=== PATIENT | female | born 1950 | race Caucasian/White ===

== ENCOUNTER 2021-08-08 12:06 | Outpatient (REF) | payer MEDICARE, SELFPAY ==
[2021-08-08 13:44] LABS: ALT 22 U/L (14-59); AST 15 U/L (15-37); Calculated LDL 204 mg/dL (<100); Cholesterol 287 mg/dL (<200); HDL Cholesterol 57 mg/dL (40-60); Triglyceride 134 mg/dL (<150)
== END 2021-08-08 12:07 | disposition home or self-care (01) ==
LOC: NCHCN 12:06
PROVIDERS: PCP Neuromusculoskeletal Medicine & OMM; Visit Provider Nurse Practitioner Family
DX: E11.9 Type 2 diabetes mellitus without complications (principal); E78.70 Disorder of bile acid and cholesterol metabolism, unspecified
CPT/HCPCS: 80061; 84450; 84460

== ENCOUNTER → 2021-09-02 01:13 | Outpatient (CLI) | payer MEDICARE, SELFPAY ==
--- NOTE | 2021-09-02 12:07 | DI.MAMMO_ITS ---
Exam(s) MAMMO SCREENING EXAM: MAMMO SCREENING CLINICAL HISTORY: SCREENING, Z12.39 TECHNIQUE: Bilateral full field digital CC and MLO mammographic images were obtained with 3D tomosyn thesis and utilizing computer aided detection (CAD). COMPARISON: Available for comparison. FINDINGS: Masses/Architectural Distortion: There is a new ovoid density in the upper-outer quadrant of the righ t breast 4-5 cm from the nipple. Microcalcifications: No suspicious pleomorphic-type are seen. Skin Thickening/Nipple Retraction: None. IMPRESSION: 1. New ovoid density in the upper-outer quadrant of the right breast. 2. Further evaluation with spot compression views and a right breast ultrasound are requested. BI-RADS Category 0 - Assessment Incomplete: Need additional imaging evaluation Breast Density - Category B - Scattered areas of fibroglandular density Breast density category C or D implies that the patient has dense breast tissue. Dense breast tissue is very common and is not abnormal but dense breast tissue can make it harder to find cancer on a ma mmogram. Also, dense breast tissue may increase their breast cancer risk. This information about the result of the mammogram report was provided to the patient to raise their awareness. Use this report when you speak with the patient about their risks for breast cancer, which includes their family hist ory. At that time, you may recommend for more screening tests (Ultrasound or MRI) as they might be us eful based on their risk. A negative radiographic report should not delay biopsy if a dominant or clinically suspicious mass is present. Up to ten percent of cancers are not identified on mammography. A negative report may reinforce clinical impression. Adenosis and dense breasts may obscure an underlying neoplasm. False positive reports average 6 to 10%. Patient will receive a letter notifying them of these results.
== END ==
PROVIDERS: PCP Nurse Practitioner Family; Visit Provider Nurse Practitioner Family
DX: Z12.31 Encounter for screening mammogram for malignant neoplasm of breast (principal); R92.8 Other abnormal and inconclusive findings on diagnostic imaging of breast; N63.11 Unspecified lump in the right breast, upper outer quadrant
CPT/HCPCS: 77063; 77067

== ENCOUNTER 2021-09-12 00:46 | Outpatient (CLI) | payer MEDICARE, SELFPAY ==
--- NOTE | 2021-09-12 | DI.US_ITS ---
Exam(s) MG MAMMO SCREEN CALL BACK UNI US BREAST RT LIMITED EXAM: US BREAST RT LIMITED CLINICAL HISTORY: F/U MAMMO, NEW OVOID DENSITY RUOQ TECHNIQUE: Ultrasound performed using standard protocol. COMPARISON: US US BREAST RT LIMITED from 06/06/2014 MG MG MAMMO SCREEN CALL BACK UNI from 09/12/2021 FINDINGS: Additional mammographic views of the right breast and right breast ultrasound are interpreted in conj unction. These examinations were obtained to evaluate a new area of nodularity in the upper outer qu adrant of the right breast about 4-5 cm from the nipple seen on recent mammogram. Spot compression v iews again show a well-circumscribed elongated ovoid nodule. Breast ultrasound shows a predominantly echogenic 6 x 4 millimeter in diameter well-circumscribed nodule with an echo [facility]. The dee mcgraw reports that she had prior trauma to this portion of the breast, the mammographic findings woul d be consistent with a small hematoma. Other etiologies including neoplastic disease are not exclude d on the basis of this examination. I would suggest that a follow-up right breast mammogram and righ t breast ultrasound be obtained in 6 months to confirm the cysts stability of this small mass. IMPRESSION: BI-RADS Cat 3 - 6 month - Probably Benign Finding: Recommend follow-up imaging in 6 months Breast Density - Category B - Scattered areas of fibroglandular density DATA REPOSITORY:
== END 2021-09-12 01:06 ==
PROVIDERS: PCP Nurse Practitioner Family; Visit Provider Nurse Practitioner Family
DX: R92.8 Other abnormal and inconclusive findings on diagnostic imaging of breast (principal); N63.11 Unspecified lump in the right breast, upper outer quadrant
CPT/HCPCS: 76642; 77063; 77067

== ENCOUNTER → 2021-09-17 01:08 | Outpatient (CLI) | payer MEDICARE, SELFPAY ==
--- NOTE | 2021-09-17 07:31 | DI.US_ITS ---
APPROVED REPORT EXAM: Comprehensive 2D, Doppler, and color-flow Echocardiogram Patient Location: Out-Patient Rocket Scientist: Nelly Linares RDCS (AE) Indications: Murmur Other Information Study Quality: Good Conclusion Normal left ventricular wall thickness and chamber size. Estimated ejection fraction is 60 to 65%. Wall motion is normal Normal right ventricular size and systolic function Both atria are normal in size Aortic valve is trileaflet and sclerotic. There is no aortic stenosis or regurgitation Mild mitral annular calcification. Trace mitral regurgitation Normal tricuspid valve with trace regurgitation. Normal estimated right ventricular systolic pressur e 23 mmHg Borderline dilated ascending aorta measuring 3.42 cm Wall motion Left Ventricle The left ventricle is normal size. The left ventricular systolic function is normal. The left ventric ular ejection fraction is within the normal range. There is normal left ventricular wall thickness. T here is normal LV segmental wall motion. There is no ventricular septal defect visualized. LVEF is 60 -65%. Right Ventricle The right ventricle is normal size. The right ventricular systolic function is normal. The RVSP is 23 .1mmHg. Atria The left atrium size is normal. The right atrium size is normal. The interatrial septum is intact wit h no evidence for an atrial septal defect. Aortic Valve Aortic valve is calcified. No hemodynamically significant valvular aortic stenosis. No aortic regurgi tation is present. Mitral Valve Mild mitral annular calcification. No evidence of mitral valve stenosis. Trace mitral regurgitation. Tricuspid Valve The tricuspid valve is normal in structure. There is no tricuspid valve stenosis. Trace tricuspid reg urgitation. Pulmonic Valve The pulmonary valve is normal in structure. There is no pulmonic valvular stenosis. There is no pulmo darrel valvular regurgitation. Great Vessels The aortic root is normal in size. The ascending aorta is mildly dilated. Aortic arch is normal in ca liber. IVC is normal in size and collapses >50% with inspiration. Pericardium There is no pericardial effusion. 2D Dimensions IVSD d PLAX 1.02 cm F: 0.6-1.0 LV Vol A2C d MOD 89.7 mL LVPW d PLAX 1.04 cm F: 0.6 - 1.0 LV Vol A4C d MOD 91.0 mL LVID d PLAX 4.54 cm F: 3.8 - 5.2 LA vol/ BSA A2C s A-L 23.2 mL/m2 LVDs 3.00 cm F: 2.2 - 3.5 LA vol/ BSA A4C s A-L 25.9 mL/m2 Ao Root d 3.26 cm F: 2.7 - 3.3 LA Vol/ BSA Biplane s A-L 26.3 mL/m2 RA Area A4C 13.03 cm2 LA Area A4C s MOD 16.71 cm2 RA Vol/ BSA A4C s A-L 18.5 mL/m2 LA Area A2C s MOD 14.70 cm2 Ao Asc Diam d 3.42 cm F: 2.3 - 3.1 LV EF A4C MOD 64.5 % LV EF Teichholz 62.8 % LV EF A2C MOD 61.0 % LVEF (Correa's) 62.65 % F: 54 - 74 LV EF Biplane MOD 62.6 % LV Volume 73.64 mL F: 46 - 106 SV 57.16 mL LV Volume Index 45.45 mL/m2 F: 29 - 61 SV Index 35.11 mL/m2 LV Vol Biplane MOD 91.2 mL FS 33.85 % M-Mode TAPSE 1.96 cm (M/F) >1.7 LV Diastology MV E' medial 0.067 (>0.07 m/s) E/A Ratio 0.9 LV E/e MED 12.90 (<14) MV E Vmax 0.87 (0.4-1.3 m/s) MV E' lateral 0.087 (>0.1 m/s) MV A Vmax 1.00 (0.4-1.3 m/s) LV E/e LAT 10.00 (<14) MV E/A Ratio 0.85 MV E/E' medial 12.91 MV E/E' lateral 10.01 Aortic Valve LVOT Area 3.16 cm2 AoV Area Vmax 1.56 cm2 LVOT Vmax 0.99 m/s AoV Area/ BSA (Vmax) 0.96 cm2/m2 LVOT Mean Bronson. 0.58 m/s LIANET Mean Bronson. 1.38 cm2 LVOT Peak Grad 3.9 mmHg LIANET Mean Bronson. Index 0.85 cm2/m2 LVOT Mean Grad 1.7 mmHg LVOT VTI 0.242 m LVOT Diam s 2.00 cm AoV Vmax 2.00 m/s Velocity Ratio 0.49 AoV Mean Bronson. 1.32 m/s AoV Peak Grad 16.0 mmHg LVOT SV 76.52 mL AoV Mean Grad 8.1 mmHg AoV VTI 0.419 m AoV Area VTI 1.83 cm2 AoV Area/ BSA (VTI) 1.12 cm/m2 Mitral Valve MV DT 258 (160-240 msec) MV PHT 75 msec MV Area PHT 2.94 cm2 MV VTI 0.397 m MV Area VTI 1.93 (4.0-6.0 cm2) Pulmonary Valve PV Vmax 1.11 (0.5-1.5 m/s) RVOT Peak Gr. 3.61 mmHg PV Peak Grad 4.9 mmHg RVOT Mean Gr. 1.90 mmHg PV Mean Grad 2.9 mmHg RVOT VTI 0.218 m PV VTI 0.246 m RVOT Vmax 0.95 m/s Tricuspid Valve TR Peak Grad 20.0 mmHg TR Vmax 2.24 m/s RA Pressure 3.00 mmHg RVSP (TR) 23.1 mmHg
== END ==
PROVIDERS: PCP Nurse Practitioner Family; Visit Provider Nurse Practitioner Family
DX: R01.1 Cardiac murmur, unspecified (principal); I35.8 Other nonrheumatic aortic valve disorders; I77.810 Thoracic aortic ectasia
CPT/HCPCS: 93306

== ENCOUNTER 2022-07-08 17:21 | Outpatient (REF) | payer MEDICARE, SELFPAY ==
[2022-07-08 16:10] LABS: HCT 38.2 % (36.0-46.0); HGB 12.7 g/dL (11.2-15.7); MCH 29.7 pg (27.0-33.0); MCHC 33.2 % (32.0-36.0); MCV 90 fL (80-95); MPV 11.2 fL (8.0-11.0); Platelet Count 246 10^3/uL (130-400); RBC 4.27 10^6/uL (3.93-5.22); RDW 12.5 % (11.7-14.6); RDW-SD 40.9 fL; WBC 6.04 10^3/uL (4.4-10.8)
[2022-07-08 17:02] LABS: ALT 22 U/L (14-59); AST 15 U/L (15-37); Albumin 3.8 g/dL (3.4-5.0); Alkaline Phosphatase 82 U/L (46-116); Anion Gap 9.7 mmol/L (3-11); BUN 21 mg/dL (7-18); Bilirubin, Total 0.3 mg/dL (0.2-1.0); CO2 27.3 mmol/L (21.0-32.0); CREATININE 0.8 mg/dL (0.55-1.02); Calcium 9.7 mg/dL (8.5-10.1); Calculated LDL 176 mg/dL (<100); Chloride 103 mmol/L (98-107); Cholesterol 260 mg/dL (<200); Glucose 132 mg/dL (74-106); HDL Cholesterol 64 mg/dL (40-60); Potassium 4.7 mmol/L (3.5-5.1); Sodium 140 mmol/L (136-145); Total Protein 8.1 g/dL (6.4-8.2); Triglyceride 102 mg/dL (<150)
== END 2022-07-08 17:22 | disposition home or self-care (01) ==
LOC: NCHCN 17:21
PROVIDERS: PCP Nurse Practitioner Family; Visit Provider Nurse Practitioner Family
DX: I10 Essential (primary) hypertension (principal)
CPT/HCPCS: 80053; 80061; 85027

== ENCOUNTER 2022-10-06 16:29 | Emergency (ER) | payer MEDICARE, SELFPAY ==
[2022-10-06] VITALS (15 sets, daily range): BP systolic 103–127; BP diastolic 39–56; PULSE 89–116; RESP 13–27; TEMP 37.7; O2SAT 90–95
--- NOTE | 2022-10-06 16:30 | RT.EKG_ITS ---
APPROVED REPORT Exam: Resting ECG Reason for Exam: Palpitations / nasuea / vomiting Patient Location: E HR:107 bpm ECG Measurements Heart Rate 107 AXIS ID 185 P 53 QRSd 84 QRS -3 QT 291 T 187 QTc 387 Conclusion Sinus tachycardia. Abnormal T, diffuse leads...T <-0.20mV, ant/lat/inf
[2022-10-06] MEDS: Normal Saline 1,000 ML 1000 ML IV (16:45)
[2022-10-06 16:48] LABS: Lactate 1.7 mmol/L (0.6-1.4)
[2022-10-06 16:50] LABS: Abs Immature Grans 0.09 10^3/uL (0.0-0.06); Absolute Eosinophil Count 0.02 10^3/uL (0.0-0.7); Absolute Neutrophil Count 17.63 10^3/uL (1.2-6.7); Basophils % 0.3; Eosinophils % 0.1; HCT 35.6 % (36.0-46.0); HGB 11.7 g/dL (11.2-15.7); Immature Grans % 0.5; Lymphocytes % 2.6; MCH 29.2 pg (27.0-33.0); MCHC 32.9 % (32.0-36.0); MCV 89 fL (80-95); Monocytes % 3.6; Neutrophils % 92.9; Platelet Count 277 10^3/uL (130-400); RBC 4.01 10^6/uL (3.93-5.22); RDW 11.5 % (11.7-14.6); RDW-SD 37.4 fL; WBC 18.98 10^3/uL (4.4-10.8)
[2022-10-06 16:51] LABS: Absolute Basophil Count 0.06 10^3/uL (0.0-0.2); Absolute Lymphocyte Count 0.49 10^3/uL (1.2-3.4); Absolute Monocyte Count 0.68 10^3/uL (0.1-0.8)
--- NOTE | 2022-10-06 16:51 | W.ED.GENAD ---
Discharge Plan Disposition Patient Disposition: Home Condition: Improving Discharge Details Clinical Impression: Acute UTI Primary Care Provider: Marlen Coleman ED Provider: Robbie Story Home Meds and New Rx's Prescriptions: New cephalexin 500 mg capsule 500 mg PO TID 7 Days Qty: 21 0RF Continued metformin [Glucophage] 1,000 mg tablet 1,000 mg PO BID amlodipine 10 mg tablet 10 mg PO DAILY losartan 100 mg tablet 100 mg PO DAILY metoprolol succinate 50 mg tablet extended release 24 hr 50 mg PO DAILY B-complex with vitamin C Capsule 1 cap PO DAILY cholecalciferol (vitamin D3) 25 mcg (1,000 unit) tablet 25 mcg PO DAILY aspirin [Aspir-Low] 81 MG tablet,delayed release (DR/EC) 81 mg PO DAILY ezetimibe [Zetia] 10 MG tablet 10 mg PO DAILY rosuvastatin [Crestor] 40 MG tablet 40 mg PO DAILY coenzyme Q10 [Co Q-10] 400 MG capsule 400 mg PO DAILY Discharge Instructions Instructions: Urinary Tract Infection in Women (ED) Additional Instructions: Today in the emergency department you were given an IV dose of ceftriaxone and then will start the antibiotic cephalexin/Keflex tomorrow. Please be sure to explain to the pharmacist that you may have had a another prescription called in by [facility]. Take antibiotics as prescribed for 7 days. Small, frequent sips of fluids so that she maintain good hydration. Return to the emergency department for any acute concerns. Please follow-up with [facility] for recheck in 1 to 2 weeks time Discharge Data Discharge Date/Time-TO BE ENTERED AT DEPARTURE: 10/06/22 20:04 Medical Decision Making 72-year-old female presents from home complaining of days of intermittent episodes of urgency and burning with urination. Today seem to be worse, associated with low-grade fever and nausea at home. She arrives to the ER with a temperature of 37.7, pulse was 114 and blood pressure 127/54. Patient reports being seen at [facility] where she was diagnosed with UTI and then referred to the ER. Presentation is consistent with acute cystitis, dehydration, must rule out electrolyte normality. IV access established, screening labs obtained, fluids initiated. Urinalysis and blood cultures obtained and antibiotics initiated. Patient's laboratory analysis show an elevated white count of 18, hematocrit 35, platelets 277. Lactic acid slightly elevated at 1.7. Sodium 133, testing 3.5, chloride 96, bicarb 25, BUN 24, creatinine 1.4. Magnesium slightly low at 1.4 and supplemented in the ER. Urinalysis with positive nitrites, large leuk esterase and numerous white blood cells. Consistent with acute cystitis. Patient significantly improved following fluids with correction of her heart rate and subjective statement of I feel better. Repeat basic obtained and no significant change. Patient objectively and subjectively improved. Will discharge to home. Sign Out No HPI General Mode of arrival: ambulatory. Date/Time Provider Initiated Documentation: 10/06/22 16:30. Limitations to Documentation: no limitations. Information obtained by: patient. History of Present Illness 72 year old F presents to the emergency department with the chief complaint of Burning with urination, nauseated today, described as moderate and similar to prior episodes, and is localized to the abdomen and pelvis. Patient reports no radiation. Patient started experiencing this day(s) and it has been intermittent. No relieving factors improve symptom(s), No exacerbating factors reported . Patient notes nausea/vomiting. Patient did receive the following treatments prior to arrival, none Related Data Home Medications Medication Instructions Recorded Confirmed aspirin 81 mg tablet,delayed 81 mg PO DAILY 10/27/14 10/07/22 release (Aspir-Low) coenzyme Q10 400 mg capsule (Co 400 mg PO DAILY 10/27/14 10/07/22 Q-10) ezetimibe 10 mg tablet (Zetia) 10 mg PO DAILY 10/27/14 10/07/22 rosuvastatin 40 mg tablet (Crestor) 40 mg PO DAILY 10/27/14 10/07/22 B-complex with vitamin C 1 cap PO DAILY 08/14/22 10/07/22 amlodipine 10 mg tablet 10 mg PO DAILY 08/14/22 10/07/22 cholecalciferol (vitamin D3) 25 25 mcg PO DAILY 08/14/22 10/07/22 mcg (1,000 unit) tablet losartan 100 mg tablet 100 mg PO DAILY 08/14/22 10/07/22 metformin 1,000 mg tablet 1,000 mg PO BID 08/14/22 10/07/22 (Glucophage) metoprolol succinate 50 mg 50 mg PO DAILY 08/14/22 10/07/22 tablet,extended release 24 hr cephalexin 500 mg capsule 500 mg PO TID 7 days #21 caps 10/06/22 10/07/22 Previous Rx's Medication Instructions Recorded cephalexin 500 mg capsule 500 mg PO TID 7 days #21 caps 10/06/22 Allergies Allergy/AdvReac Type Severity Reaction Status Date / Time No Known Allergies Allergy Unverified 10/07/22 10:46 General Stated Complaint: GenMedical ALEXI: 3 Review of Systems Narrative: 8 systems reviewed and otherwise negative PFSH All Active Problems (Updated 10/07/22 @ 12:15 by Leida Jacobs NP) Acute UTI (Acute) Diabetes mellitus (Chronic) Medical History Abnormal mammogram H/O: HTN (hypertension) Heart palpitations High cholesterol Surgical History History of colonoscopy (~04/27/07) Coin, Vt Normal Social History Smoking/Tobacco Use Status: Never Smoking risk assessment performed?: Yes Alcohol Intake: current Alcohol Intake frequency: holidays/special occasions only Drug use: Never Substance use type: does not use Do you feel safe at home: Yes Do you feel safe in your relationship?: Yes Exam Narrative Exam Narrative: GEN: awake, alert, oriented 3. Pleasant, well groomed, interactive. HEAD: Normocephalic, atraumatic ENT: Mucous membranes dry, oropharynx unremarkable, External ear exam unremarkable EYES: PERRL, EOMI NECK: Full ROM, no LAVINIA, no menigismus CHEST/RESP: Nontender, clear to auscultation bilateral, no wheeze/rhonchi/rales CARDIOVASCULAR: Regular and tachycardic, no murmur, rub ace. 2+ Rad pulse bilateral ABDOMEN: Soft, nontender, no mass. +Bowel sounds EXT: Full ROM, no edema, no rash Neuro: Grossly normal neurologic exam, conversant, interactive. Psych: Speech fluent, thoughts congruent, affect normal Course Vital Signs Vital signs: Vital Signs Temperature 37.7 C H 10/06/22 16:34 Pulse 114 H 10/06/22 16:34 Respiratory Rate 16 10/06/22 16:34 Blood Pressure 127/54 L 10/06/22 16:34 Pulse Oximetry 92 10/06/22 16:34 Temperature 37.7 C H 10/06/22 16:34 Temperature Source Oral 10/06/22 16:34 Pulse 114 H 10/06/22 16:34 Respiratory Rate 14 10/06/22 16:46 Respiratory Effort Non-Labored 10/06/22 16:46 Respiratory Depth Normal 10/06/22 16:46 Respiratory Pattern Normal 10/06/22 16:46 Blood Pressure 127/54 L 10/06/22 16:34 Blood Pressure Position Supine 10/06/22 16:34 Pulse Oximetry 92 10/06/22 16:34 Oxygen Delivery Method Room Air 10/06/22 16:34 Oxygen Flow Rate 0 10/06/22 16:34 Pain Level 0 10/06/22 16:34 Lab/Test Results Lab/Test Results: 10/06/22 16:42 Blood Blood Culture - Pending 10/06/22 16:42 Blood Blood Culture - Pending Laboratory Tests Range/Units 10/06/22 16:40 VBG Lactate (0.6-1.4) mmol/L 1.7 H
[2022-10-06 17:09] LABS: ALT 36 U/L (14-59); AST 29 U/L (15-37); Albumin 3.7 g/dL (3.4-5.0); Alkaline Phosphatase 91 U/L (46-116); Anion Gap 11.2 mmol/L (3-11); BUN 24 mg/dL (7-18); Bilirubin, Total 0.4 mg/dL (0.2-1.0); CO2 25.8 mmol/L (21.0-32.0); CREATININE 1.4 mg/dL (0.55-1.02); Calcium 10.1 mg/dL (8.5-10.1); Chloride 96 mmol/L (98-107); Estimated GFR 39.73 (mL/min/1.73m2); Glucose 181 mg/dL (74-106); Magnesium 1.4 mg/dL (1.8-2.4); Potassium 3.5 mmol/L (3.5-5.1); Sodium 133 mmol/L (136-145); Total Protein 8.1 g/dL (6.4-8.2); Troponin I < 50 ng/L (<or=60)
[2022-10-06] MEDS: ACETAMINOPHEN 1,000 MG/100 ML BTL 400 MG IVPB (17:26)
[2022-10-06] MEDS: Ondansetron 4 MG/2 ML VIAL IVP (17:26)
[2022-10-06] MEDS: cefTRIAXone 2 GM/50 ML BAG IVPB (17:54)
[2022-10-06 18:02] LABS: Bilirubin Negative (Negative); Blood Moderate (Negative); Clarity Cloudy (Clear); Glucose Negative (Negative); Ketones Negative (Negative); Leukocyte Esterase Large (Negative); Nitrite Positive (Negative); Specific Gravity 1.025 (1.005-1.025); Urobilinogen 0.2 EU/dL (Up TO 0.2)
[2022-10-06 18:12] LABS: Bacteria Many HPF (Negative); C & S Indicated? Yes; Casts 0-2 Hyaline LPF (Negative); Crystals Negative HPF (Negative); Epithelial Cells Few HPF (Negative); Mucus Trace (Negative); Other Cells Few Transitional (Negative); WBC >50 HPF (0-5)
[2022-10-06] MEDS: Normal Saline 500 ML IV (19:04)
[2022-10-06] MEDS: MAGNESIUM SULFATE 2 GM/50 ML BAG IVPB (19:07)
[2022-10-06 19:25] LABS: Anion Gap 9.4 mmol/L (3-11); BUN 24 mg/dL (7-18); CO2 25.6 mmol/L (21.0-32.0); CREATININE 1.4 mg/dL (0.55-1.02); Calcium 9.3 mg/dL (8.5-10.1); Chloride 99 mmol/L (98-107); Estimated GFR 39.73 (mL/min/1.73m2); Glucose 173 mg/dL (74-106); Potassium 3.5 mmol/L (3.5-5.1); Sodium 134 mmol/L (136-145)
--- NOTE | 2022-10-07 07:57 | W.ED.FU ---
Date of service: 10/07/22 Time of Service: 07:57 Follow Up Plan: Received positive blood culture result from the lab which shows gram-negative jennifer. Patient was seen yesterday in the ER diagnosed with a UTI was given IV dose of Rocephin and prescribed cephalexin twice daily x7 days. Call made to patient, spoke with Lina, she reports feeling better I did relay the preliminary results of the culture and suggested that she return for repeat blood cultures and possible admission. She verbalizes understanding.
== END 2022-10-06 20:04 | disposition home or self-care (01) ==
PROVIDERS: Emergency Provider Emergency Medicine; PCP Nurse Practitioner Family
DX: N39.0 Urinary tract infection, site not specified (principal); D72.829 Elevated white blood cell count, unspecified; R74.02 Elevation of levels of lactic acid dehydrogenase [LDH]; E83.42 Hypomagnesemia; I10 Essential (primary) hypertension; E78.00 Pure hypercholesterolemia, unspecified; Z79.82 Long term (current) use of aspirin
CPT/HCPCS: 36415; 80048; 80053; 87040; 87077; 93005; 96361; 96365; 96375; 99284; 81003; 81015; 83605; 83735; 84484; 85025; 87086; 87186; 93010; J0131; J2405

== ENCOUNTER 2022-10-06 17:45 | Outpatient (REF) | payer MEDICARE, SELFPAY | END 2022-10-06 17:46 | disposition home or self-care (01) | LOC: NCHCN 17:45 | PROVIDERS: PCP Nurse Practitioner Family; Visit Provider Nurse Practitioner Family | DX: R30.0 Dysuria (principal) | CPT/HCPCS: 87086 ==

== ENCOUNTER 2022-10-07 10:21 | Emergency (ER) | payer MEDICARE, SELFPAY ==
[2022-10-07] VITALS (12 sets, daily range): BP systolic 102–115; BP diastolic 38–45; PULSE 66–87; RESP 12–20; TEMP 36.6–36.7; O2SAT 93–97
--- NOTE | 2022-10-07 10:52 | ED.GENADUL_ITS ---
Discharge Plan Disposition Patient Disposition: Home Condition: Improving Discharge Details Clinical Impression: Acute UTI Primary Care Provider: Marlen Coleman ED Provider: Leida Jacobs Home Meds and New Rx's Prescriptions: Continued metformin [Glucophage] 1,000 mg tablet 1,000 mg PO BID amlodipine 10 mg tablet 10 mg PO DAILY losartan 100 mg tablet 100 mg PO DAILY metoprolol succinate 50 mg tablet extended release 24 hr 50 mg PO DAILY B-complex with vitamin C Capsule 1 cap PO DAILY cholecalciferol (vitamin D3) 25 mcg (1,000 unit) tablet 25 mcg PO DAILY aspirin [Aspir-Low] 81 MG tablet,delayed release (DR/EC) 81 mg PO DAILY ezetimibe [Zetia] 10 MG tablet 10 mg PO DAILY rosuvastatin [Crestor] 40 MG tablet 40 mg PO DAILY coenzyme Q10 [Co Q-10] 400 MG capsule 400 mg PO DAILY cephalexin 500 mg capsule 500 mg PO TID 7 Days Qty: 21 0RF Discharge Instructions Instructions: Urinary Tract Infection in Women (ED) Additional Instructions: Continue taking the cephalexin twice daily as previously prescribed. You were given a prescription for 3 additional days for a total of 10 days of antibiotic. You are given an additional dose of IV ceftriaxone. Follow up with primary care provider in 3-5 days. Return to ED sooner if any worsening or concerns. Increase oral fluids. Please return to the ER for feeling sicker at any time. Referrals: Marlen Coleman [Primary Care Provider] - 3 days Discharge Data Discharge Date/Time-TO BE ENTERED AT DEPARTURE: 10/07/22 12:33 Medical Decision Making 72-year-old female with a past medical history of diabetes mellitus, hypertension and high cholesterol presents to the ER for the second time in 48 hours after I called her regarding positive blood cultures. Patient was seen here yesterday and diagnosed with a UTI was given IV Rocephin, and p.o. cephalexin. Had some hypomagnesemia and blood cultures resulted with gram- negative rods. CBC, CMP, lactate magnesium and repeat blood cultures ordered. CBC is somewhat improved white blood cell count is 16.25 down from 18 yesterday. Hemoglobin 10.2 hematocrit 31.1, absolute neutrophils 15.73, lactate somewhat higher than yesterday 2.0 up from 1.7, 1110: Hospitalist paged for admission request. 1132: Spoke with Dr. Darling and Stacey Del Angel with the hospitalist group who recommended giving her 2 g of Rocephin IV here in the department today and following her blood cultures that they are negative for tomorrow she can continue with the oral medication at home that was previously prescribed. Encourage patient to continue taking the cephalexin 3 times daily as previously prescribed. Instructed to return if any worsening at all. Patient verbalized understanding. This text was generated using [employer]right[employer] system, please disregard any oddities of phrase or misspellings. Medical Records Medical records reviewed: Yes I reviewed the patient's medical records. Lab Data Lab results reviewed: Yes I reviewed the patient's lab results. Labs: 10/07/22 10:50 Blood Blood Culture - Pending 10/07/22 10:55 Blood Blood Culture - Pending Laboratory Tests Range/Units 10/07/22 10/07/22 10/07/22 10:37 10:55 10:55 WBC (4.4-10.8) 10^3/uL 16.25 H RBC (3.93-5.22) 10^6/uL 3.43 L Hgb (11.2-15.7) g/dL 10.2 L Hct (36.0-46.0) % 31.1 L MCV (80-95) fL 91 MCH (27.0-33.0) pg 29.7 MCHC (32.0-36.0) % 32.8 RDW (11.7-14.6) % 12.0 Plt Count (130-400) 10^3/uL 256 MPV (8.0-11.0) fL 10.2 Immature Gran % 0.4 Neutrophils % 84.5 Lymphocytes % 7.6 Monocytes % 7.2 Eosinophils % 0.1 Basophils % 0.2 Nucleated RBC % (0.0-0.3) % 0.0 Absolute Neutrophils (1.2-6.7) 10^3/uL 13.73 H Absolute Lymphocytes (1.2-3.4) 10^3/uL 1.24 Absolute Monocytes (0.1-0.8) 10^3/uL 1.17 H Absolute Eosinophils (0.0-0.7) 10^3/uL 0.02 Absolute Basophils (0.0-0.2) 10^3/uL 0.03 VBG Lactate (0.6-1.4) mmol/L Sodium (136-145) mmol/L 136 Potassium (3.5-5.1) mmol/L 3.1 L Chloride (98-107) mmol/L 99 Carbon Dioxide (21.0-32.0) mmol/L 28.2 Anion Gap (3-11) mmol/L 8.8 BUN (7-18) mg/dL 25 H Creatinine (0.55-1.02) mg/dL 1.4 H Est GFR (CKD-EPI 2020) (mL/min/1.73m2) 39.73 Glucose (74-106) mg/dL 188 H Calcium (8.5-10.1) mg/dL 9.2 Magnesium Cancelled 1.6 L Total Bilirubin (0.2-1.0) mg/dL 0.3 AST (15-37) U/L 26 ALT (14-59) U/L 37 Alkaline Phosphatase (46-116) U/L 81 Total Protein (6.4-8.2) g/dL 7.1 Albumin (3.4-5.0) g/dL 2.9 L Range/Units 10/07/22 10:55 WBC (4.4-10.8) 10^3/uL RBC (3.93-5.22) 10^6/uL Hgb (11.2-15.7) g/dL Hct (36.0-46.0) % MCV (80-95) fL MCH (27.0-33.0) pg MCHC (32.0-36.0) % RDW (11.7-14.6) % Plt Count (130-400) 10^3/uL MPV (8.0-11.0) fL Immature Gran % Neutrophils % Lymphocytes % Monocytes % Eosinophils % Basophils % Nucleated RBC % (0.0-0.3) % Absolute Neutrophils (1.2-6.7) 10^3/uL Absolute Lymphocytes (1.2-3.4) 10^3/uL Absolute Monocytes (0.1-0.8) 10^3/uL Absolute Eosinophils (0.0-0.7) 10^3/uL Absolute Basophils (0.0-0.2) 10^3/uL VBG Lactate (0.6-1.4) mmol/L 2.0 H Sodium (136-145) mmol/L Potassium (3.5-5.1) mmol/L Chloride (98-107) mmol/L Carbon Dioxide (21.0-32.0) mmol/L Anion Gap (3-11) mmol/L BUN (7-18) mg/dL Creatinine (0.55-1.02) mg/dL Est GFR (CKD-EPI 2020) (mL/min/1.73m2) Glucose (74-106) mg/dL Calcium (8.5-10.1) mg/dL Magnesium Total Bilirubin (0.2-1.0) mg/dL AST (15-37) U/L ALT (14-59) U/L Alkaline Phosphatase (46-116) U/L Total Protein (6.4-8.2) g/dL Albumin (3.4-5.0) g/dL Sign Out No HPI General Mode of arrival: ambulatory . Date/Time Provider Initiated Documentation: 10/07/22 10:36 . Limitations to Documentation: no limitations . Information obtained by: patient, RN notes reviewed and old records reviewed . HPI Narrative: 72-year-old female with a past medical history of diabetes mellitus, hypertension and high cholesterol presents to the ER for the second time in 48 hours after I called her regarding positive blood cultures. Patient was seen here yesterday and diagnosed with a UTI was given IV Rocephin, and p.o. cephalexin. Had some hypomagnesemia and blood cultures resulted with gram- negative rods. I did discuss that patient may need admission for parenteral antibiotics and further observation. She reports that she feels much better than yesterday. No further vomiting or fever noted. Related Data Home Medications Medication Instructions Recorded Confirmed aspirin 81 mg tablet,delayed 81 mg PO DAILY 10/27/14 10/07/22 release (Aspir-Low) coenzyme Q10 400 mg capsule (Co 400 mg PO DAILY 10/27/14 10/07/22 Q-10) ezetimibe 10 mg tablet (Zetia) 10 mg PO DAILY 10/27/14 10/07/22 rosuvastatin 40 mg tablet (Crestor) 40 mg PO DAILY 10/27/14 10/07/22 B-complex with vitamin C 1 cap PO DAILY 08/14/22 10/07/22 amlodipine 10 mg tablet 10 mg PO DAILY 08/14/22 10/07/22 cholecalciferol (vitamin D3) 25 25 mcg PO DAILY 08/14/22 10/07/22 mcg (1,000 unit) tablet losartan 100 mg tablet 100 mg PO DAILY 08/14/22 10/07/22 metformin 1,000 mg tablet 1,000 mg PO BID 08/14/22 10/07/22 (Glucophage) metoprolol succinate 50 mg 50 mg PO DAILY 08/14/22 10/07/22 tablet,extended release 24 hr cephalexin 500 mg capsule 500 mg PO TID 7 days #21 caps 10/06/22 10/07/22 Previous Rx's Medication Instructions Recorded cephalexin 500 mg capsule 500 mg PO TID 7 days #21 caps 10/06/22 Allergies Allergy/AdvReac Type Severity Reaction Status Date / Time No Known Allergies Allergy Unverified 10/07/22 10:46 General Stated Complaint: Urinary ALEXI: 3 Review of Systems All systems reviewed & are unremarkable except as noted in HPI and below Constitutional Constitutional: Reports as per HPI and Denies fever(s) PFSH All Active Problems (Updated 10/07/22 @ 12:15 by Leida Jacobs NP) Acute UTI (Acute) Diabetes mellitus (Chronic) Medical History Abnormal mammogram H/O: HTN (hypertension) Heart palpitations High cholesterol Surgical History History of colonoscopy (~04/27/07) [place] Normal Social History Smoking/Tobacco Use Status: Never Smoking risk assessment performed?: Yes Alcohol Intake: current Alcohol Intake frequency: holidays/special occasions only Drug use: Never Substance use type: does not use Do you feel safe at home: Yes Do you feel safe in your relationship?: Yes Exam Narrative Exam Narrative: Constitutional: Alert and oriented x3. Appears stated age. Normal body habitus. Head: Normocephalic, no trauma. Eyes: Pupils PERRL, Red reflex noted, EOM's intact. Eyelids symmetrical without lesions, discharge, or swelling. ENT: Bilateral TM's WNL, External ear normal to inspection, no mastoid TTP, swelling, or erythema, Nasal turbinates WNL, no nasal discharge. Normal dentition, Posterior pharynx WNL, no exudate. Chest: RRR, Normal S1, S2, distal pulses intact. Resp: Lungs clear to auscultation bilaterally, no wheezes, rales, or rhonchi. Abdomen: Soft, non-distended, Normoactive bowel sounds all 4 quads. Musculoskeletal: Normal gait, 5/5 strength to all four extremities. Skin: No suspicious rashes or lesions. Capillary refill less than 2 sec. Neurologic: Cranial nerves II-XII intact. Alert and oriented x 3. Motor: No deficits noted. Sensory: Intact bilaterally all 4 extremities. Reflexes: DTR's intact bilaterally.. Hematologic/Lymphatic: No ecchymosis, no lymphadenopathy. Course Vital Signs Vital signs: Vital Signs Temperature 36.6 C 10/07/22 10:37 Pulse 87 10/07/22 10:37 Respiratory Rate 12 10/07/22 10:37 Blood Pressure 115/45 L 10/07/22 10:37 Pulse Oximetry 97 10/07/22 10:37 Temperature 36.6 C 10/07/22 10:37 Temperature Source Temporal Artery Scan 10/07/22 10:37 Pulse 87 10/07/22 10:37 Respiratory Rate 12 10/07/22 10:37 Respiratory Effort Non-Labored 10/07/22 10:44 Blood Pressure 115/45 L 10/07/22 10:37 Blood Pressure Position Sitting 10/07/22 10:37 Pulse Oximetry 97 10/07/22 10:37 Oxygen Delivery Method Room Air 10/07/22 10:37 Oxygen Flow Rate 0 10/07/22 10:37 Pain Level 0 10/07/22 10:44 Lab/Test Results Lab/Test Results: 10/07/22 10:36 Blood Blood Culture - Pending 10/07/22 10:36 Blood Blood Culture - Pending PAWSS Have you Been Recently Intoxicated or Drunk Within the Last 30 days?: No Have you Ever Experienced Previous Episodes of Alcohol Withdrawal?: No Have you ever Experienced Withdrawal Seizures?: No Have you ever Experienced Delirium Tremens(DT)s?: No Have you ever undergone Alcohol Rehabilitation Treatment (i.e, inpt ot outpatient treatment programs)?: No Have you ever Experienced Blackouts?: No Have you ever Combined Alcohol with other Downers within the last 90 days?: No Have you ever Combined Alcohol with any other Substance of Abuse during the last 90 days?: No Result: 0
[2022-10-07 11:00] LABS: Abs Immature Grans 0.06 10^3/uL (0.0-0.06); Absolute Basophil Count 0.03 10^3/uL (0.0-0.2); Absolute Monocyte Count 1.17 10^3/uL (0.1-0.8); Basophils % 0.2; Eosinophils % 0.1; HCT 31.1 % (36.0-46.0); HGB 10.2 g/dL (11.2-15.7); Immature Grans % 0.4; Lymphocytes % 7.6; MCH 29.7 pg (27.0-33.0); MCHC 32.8 % (32.0-36.0); MCV 91 fL (80-95); MPV 10.2 fL (8.0-11.0); Monocytes % 7.2; Neutrophils % 84.5; Platelet Count 256 10^3/uL (130-400); RBC 3.43 10^6/uL (3.93-5.22); RDW-SD 40.2 fL; WBC 16.25 10^3/uL (4.4-10.8)
[2022-10-07 11:04] LABS: Absolute Eosinophil Count 0.02 10^3/uL (0.0-0.7); Absolute Lymphocyte Count 1.24 10^3/uL (1.2-3.4); Absolute Neutrophil Count 13.73 10^3/uL (1.2-6.7)
[2022-10-07 11:18] LABS: ALT 37 U/L (14-59); AST 26 U/L (15-37); Albumin 2.9 g/dL (3.4-5.0); Alkaline Phosphatase 81 U/L (46-116); Anion Gap 8.8 mmol/L (3-11); BUN 25 mg/dL (7-18); Bilirubin, Total 0.3 mg/dL (0.2-1.0); CO2 28.2 mmol/L (21.0-32.0); CREATININE 1.4 mg/dL (0.55-1.02); Calcium 9.2 mg/dL (8.5-10.1); Chloride 99 mmol/L (98-107); Estimated GFR 39.73 (mL/min/1.73m2); Glucose 188 mg/dL (74-106); Magnesium 1.6 mg/dL (1.8-2.4); Potassium 3.1 mmol/L (3.5-5.1); Sodium 136 mmol/L (136-145); Total Protein 7.1 g/dL (6.4-8.2)
[2022-10-07] MEDS: Normal Saline 1,000 ML 1000 ML IV (11:20)
[2022-10-07] MEDS: cefTRIAXone 2 GM/50 ML BAG IVPB (11:44)
== END 2022-10-07 12:33 | disposition home or self-care (01) ==
PROVIDERS: Emergency Provider Registered Nurse Emergency; PCP Nurse Practitioner Family
DX: N39.0 Urinary tract infection, site not specified (principal); I10 Essential (primary) hypertension; E11.9 Type 2 diabetes mellitus without complications; E78.00 Pure hypercholesterolemia, unspecified; Z79.84 Long term (current) use of oral hypoglycemic drugs; Z79.899 Other long term (current) drug therapy
CPT/HCPCS: 36415; 80053; 87040; 96365; 99284; 83605; 83735; 85025

== ENCOUNTER 2022-10-22 01:36 | Outpatient (CLI) | payer MEDICARE, SELFPAY | END 2022-10-22 01:37 | disposition home or self-care (01) | LOC: LBO 01:36 | PROVIDERS: PCP Nurse Practitioner Family; Visit Provider Family Medicine | DX: R78.81 Bacteremia (principal) | CPT/HCPCS: 36415; 87040 ==

== ENCOUNTER 2022-12-23 13:18 | Outpatient (REF) | payer MEDICARE, SELFPAY ==
[2022-12-23 14:53] LABS: HCT 39.7 % (36.0-46.0); HGB 12.9 g/dL (11.2-15.7); MCH 29.5 pg (27.0-33.0); MCHC 32.5 % (32.0-36.0); MCV 91 fL (80-95); Platelet Count 284 10^3/uL (130-400); RBC 4.38 10^6/uL (3.93-5.22); RDW 12.5 % (11.7-14.6); RDW-SD 41.2 fL; WBC 6.76 10^3/uL (4.4-10.8)
[2022-12-23 15:02] LABS: ALT 19 U/L (14-59); AST 16 U/L (15-37); Albumin 4.1 g/dL (3.4-5.0); Alkaline Phosphatase 104 U/L (46-116); BUN 20 mg/dL (7-18); Bilirubin, Total 0.4 mg/dL (0.2-1.0); CREATININE 0.8 mg/dL (0.55-1.02); Calcium 10.8 mg/dL (8.5-10.1); Chloride 100 mmol/L (98-107); Estimated GFR 77.75 (mL/min/1.73m2); Glucose 117 mg/dL (74-106); Potassium 4.4 mmol/L (3.5-5.1); Sodium 139 mmol/L (136-145); Total Protein 7.8 g/dL (6.4-8.2)
== END 2022-12-23 13:19 | disposition home or self-care (01) ==
LOC: NCHCN 13:18
PROVIDERS: PCP Nurse Practitioner Family; Visit Provider Nurse Practitioner Family
DX: E11.9 Type 2 diabetes mellitus without complications (principal)
CPT/HCPCS: 80053; 85027

== ENCOUNTER 2023-05-11 08:50 | Outpatient (CLI) | payer MEDICARE, SELFPAY | END 2023-05-11 08:51 | disposition home or self-care (01) | PROVIDERS: PCP Nurse Practitioner Family; Visit Provider Nurse Practitioner Family | DX: R00.2 Palpitations (principal) | CPT/HCPCS: 93246 ==

== ENCOUNTER 2023-06-10 08:09 | Outpatient (CLI) | payer MEDICARE, SELFPAY ==
--- NOTE | 2023-06-10 09:03 | W.CARDEVENT ---
Date of service: 06/10/23 Time of Service: 09:03 Cardiac Event Recorder Referring Provider:: Marlen Coleman Indications:: Palpitations Cardiac Event Note: This is a cardiac event monitor ordered for palpitations. Patient was monitored for a total of 6 days and 6 hours Predominant rhythm was sinus with an average heart rate of 78. Minimum was 41, maximum 130 There were rare atrial and ventricular ectopic beats A total of 12 self-limited atrial runs occurred. The longest of these was 12 beats in duration There was no atrial fibrillation, no high-grade AV block, no pauses greater than 3 seconds Patient symptoms were reported which had no correlation with any dysrhythmia
== END 2023-06-10 08:10 | disposition home or self-care (01) ==
LOC: CARDOPNVT 08:09
PROVIDERS: PCP Nurse Practitioner Family; Visit Provider Internal Medicine Cardiovascular Disease
DX: R00.2 Palpitations (principal); I49.1 Atrial premature depolarization
CPT/HCPCS: 93248

== ENCOUNTER 2023-06-30 03:03 | Outpatient (CLI) | payer MEDICARE, SELFPAY ==
[2023-06-30 08:18] LABS: Estimated GFR 59.12 (mL/min/1.73m2)
== END 2023-06-30 03:04 | disposition home or self-care (01) ==
LOC: LBO 03:03
PROVIDERS: PCP Nurse Practitioner Family; Visit Provider Nurse Practitioner Family
DX: R94.4 Abnormal results of kidney function studies (principal)
CPT/HCPCS: 36415; 82565

== ENCOUNTER → 2023-06-30 12:24 | Outpatient (CLI) | payer MEDICARE, SELFPAY ==
--- NOTE | 2023-06-30 | DI.CT_ITS ---
Exam(s) CT CHEST PE CTA EXAM: CT CHEST PE CTA CLINICAL HISTORY: COUGH, R05.8,? PE. TECHNIQUE: Imaging Protocol: Axial CT angiography was performed with multi-slice acquisition and mu lti-planar reconstructions as well as axial, coronal and sagittal MIP reconstructions. CONTRAST MATERIAL: Intravenous: Omnipaque 350 Contrast volume:100 ml COMPARISON: No exams were available for comparison FINDINGS: Pulmonary Arteries: No evidence of filling defect to suggest pulmonary emboli. Tracheobronchial tree: Patent where visualized. Mediastinum and Mesha: No dominant adenopathy or fluid collection. Pulmonary parenchyma: Dependent changes. Mild respiratory motion. No consolidation or dominant meme urable mass. Pleura: No effusion or pneumothorax. Heart: The heart is mild dilated. No coronary artery calcifications are seen. Aorta: Thoracic aorta non-dilated. No aneurysm. No dissection. Upper abdomen: Small hiatal hernia. Bones: Mild degenerative changes. Mild compression fractures of the superior endplates T3 and T4. Tubes, Catheters, and Lines: None IMPRESSION: No evidence of pulmonary embolism or other acute abnormality.. RADIATION DOSE DELIVERED: 394.73mGy.cm Total DLP DATA REPOSITORY: All CT scans at this facility are submitted to the National Radiology Data Registry (NRDR) Dose Index Registry (DIR) with the [employer] (ACR). RADIATION OPTIMIZATION: All CT scans at this facility use at least one of these dose optimization te chniques: automated exposure control; mA and/or kV adjustment per patient size (includes targeted exa ms where dose is matched to clinical indication); or iterative reconstruction.
[2023-06-30] MEDS: Normal Saline Flush 10 ML SYR IVP (09:20)
[2023-06-30] MEDS: Omnipaque 350 MG/ML 100 ML BTL IJ (09:21)
[2023-06-30] MEDS: Normal Saline - Diluent 50 ML VIAL IJ (09:21)
== END ==
PROVIDERS: PCP Nurse Practitioner Family; Visit Provider Nurse Practitioner Family
DX: R05.8 Other specified cough (principal)
CPT/HCPCS: 71275; J3490

== ENCOUNTER → 2023-08-02 01:54 | Outpatient (CLI) | payer MEDICARE, SELFPAY ==
--- NOTE | 2023-08-02 | DI.DEXA_ITS ---
Exam(s) XR DEXA BONE DENSITY W/WO LEE EXAM: XR DEXA BONE DENSITY W/WO LEE CLINICAL HISTORY: OSTEOPENIA M85.80 DISORDER BONE DENSITY M85.88 TECHNIQUE: COMPARISON: No exams were available for comparison FINDINGS: Lateral Spine Image: Unremarkable. No compression deformities identified. Left hip: Total T-Score: -1.4 Total Z-Score: 0.3 T- and Z-scores: Findings are consistent with osteopenia. There is osteoporosis in the femoral neck with a T-score of -2.5. Lumbar Spine: Total T-Score: -1.9 Total Z-Score: 0.5 T- and Z-scores: Findings are consistent with osteopenia. IMPRESSION: Findings of osteoporosis in the left femoral neck.
== END ==
PROVIDERS: PCP Nurse Practitioner Family; Visit Provider Nurse Practitioner Family
DX: M85.88 Other specified disorders of bone density and structure, other site (principal); Z13.820 Encounter for screening for osteoporosis
CPT/HCPCS: 77080